=== PATIENT | female | born 1985 | race Caucasian/White ===

== ENCOUNTER 2020-10-11 19:16 | Emergency (ER) | payer OTHER ==
[~2020-10-11] VITALS: Ht 170.2 cm; Wt 76.2 kg
== END 2020-10-11 22:36 | disposition home or self-care (01) ==
LOC: ER 19:16
DX: O26.892 Other specified pregnancy related conditions, second trimester (principal); R60.0 Localized edema; Z34.82 Encounter for supervision of other normal pregnancy, second trimester

== ENCOUNTER → 2020-10-13 09:03 | Outpatient (CLI) | payer OTHER | END | disposition home or self-care (01) | LOC: NUCLEAR 09:03 | PROVIDERS: ATTEND General Practice | DX: R60.0 Localized edema (principal) ==

== ENCOUNTER 2021-03-08 14:30 | Inpatient (IN) | payer OTHER ==
[~2021-03-08] VITALS: Ht 170.2 cm; Wt 85.3 kg
[2021-03-18] MEDS ORDERED: PRENATAL TABLE1 EAC1 PO (10:15)
[2021-03-18] MEDS ORDERED: CHILDREN'S ASPI81 MG PO (10:15)
[2021-03-18] MEDS ORDERED: IRON236 MG PO (10:15)
[2021-03-18] MEDS ORDERED: FOLIC ACID0.8 M1 PO (10:15)
== END 2021-03-20 13:40 | disposition home or self-care (01) | DRG 807 ==
LOC: OB/GYN 03-18 10:03 → LDR 03-18 10:03 → OB/GYN 03-18 21:07 → LDR 03-19 14:30 → OB/GYN 03-20 13:40
PROVIDERS: ADMIT Obstetrics & Gynecology; ATTEND Obstetrics & Gynecology
PROC: 10E0XZZ Delivery of Products of Conception, External Approach (ICD-10-PCS; principal; 2021-03-18)
PROC: 0W8NXZZ Division of Female Perineum, External Approach (ICD-10-PCS; 2021-03-18)
PROC: 4A1HXFZ Monitoring of Products of Conception, Cardiac Rhythm, External Approach (ICD-10-PCS; 2021-03-18)
DX: O80 Encounter for full-term uncomplicated delivery (principal); Z37.0 Single live birth; Z3A.39 39 weeks gestation of pregnancy